=== PATIENT | female | born 1950 | race African-American/Black ===

== ENCOUNTER 2024-02-04 18:23 | Emergency (ER) | payer OTHER ==
[~2024-02-04] VITALS: Ht 188 cm; Wt 99.0 kg
[~2024-02-04 18:23] MED LIST: HYDR12.529 PO; LISI40TA13 PO; OMEP20CA4 PO
[2024-02-04 18:33] VITALS: BP 138/78; TEMP 98.6; O2SAT 96
[2024-02-04 18:39] VITALS: PULSE 82; RESP 18; O2SAT 100
== END 2024-02-04 20:30 | disposition left against medical advice (07) ==
LOC: ER 18:23
DX: K62.5 Hemorrhage of anus and rectum (principal); Z53.21 Procedure and treatment not carried out due to patient leaving prior to being seen by health care provider